=== PATIENT | female | born 1950 | race Caucasian/White ===

== ENCOUNTER 2025-04-28 10:28 | Day surgery (SDC) | payer MEDICARE, OTHER, SELFPAY ==
[2025-04-28] VITALS (8 sets, daily range): BP systolic 115–159; BP diastolic 71–83; BMI 30.8
[2025-04-28 10:59] LABS: Hematocrit 39.4 % (37.0-47.0); Hemoglobin 13.0 g/dL (12.0-16.0); Mean Corp Hgb Conc. 33.0 g/dL (33.0-37.0); Mean Corpuscular Volume 88.7 fL (81.0-99.0); Platelet Count 314 10^3/uL (130-400); Red Cell Dist. Width 12.8 % (11.5-14.5)
[2025-04-28 11:15] LABS: ALT (SGPT) 21 U/L (0-35); AST (SGOT) 23 U/L (14-36); Albumin 4.3 g/dl (3.5-5.0); Alkaline Phosphatase 79 U/L (38-126); Blood Urea Nitrogen 18 mg/dl (7-17); Calcium 9.7 mg/dl (8.4-10.2); Carbon Dioxide 30 mmol/L (22-30); Chloride 107 mmol/L (98-107); Glucose 99 mg/dl (70-99); Potassium 4.9 mmol/L (3.5-5.1); Sodium 139 mmol/L (135-145); Total Protein 6.9 g/dl (6.3-8.2); eGFR > 60.00
[2025-04-28] MEDS: LOW STRENGTH ASPIRIN 324 MG PO (11:55)
--- NOTE | 2025-04-28 14:38 | ITS.CL.CATH ---
Moderate Needs Teacher - Catheterization
Cardiac Catheterization
Procedure Report:
LEFT AND RIGHT HEART CATHETERIZATION
Date of Procedure: April 28, 2025
Referring: Steve Petersen PA-C and Dr. Ted Diallo
PROCEDURES:
1. Left heart catheterization, coronary angiogram.
2. Moderate sedation.
INDICATION: Ongoing dyspnea on exertion
ACCESS: Right radial artery, 6Fr. sheath, under US guidance.
Right brachial vein, 6Fr sheath, under Us guidance
HEMODYNAMICS : (mmHg)
RA (m) : 6
RV (s/d,m) : 30/4, 8
PA (s/d, m) : 24/12, 16
PCWP (m) : 12
PA saturation: 67.5% on room air
AO saturation: 96.3% on room air
RA saturation: 67.4% on room air
Cardiac Output : 4.78 L/min
Cardiac Index : 2.55 L/min/m-2
Systemic vascular resistance: 1909 dsc^(-5)
Pulmonary vascular resistance: 3.13 davalos unit
AO (s/d) : 164/85
LVEDP : 13
No significant gradient across the aortic valve to suggest aortic stenosis.
CORONARY FINDINGS: Tortuous coronary arteries
Dominance: Right
Left Main Trunk (LMT): Large caliber vessel that gives rise to the LAD and LCx branches and is free of angiographic disease.
Left Anterior Descending Artery (LAD): Large caliber vessel that gives off 2 major diagonal branches as it courses along the anterior inter-ventricular groove before wrapping around the cardiac apex. The LAD and its branches are free of
angiographic disease.
Left Circumflex Artery (LCx): Large caliber vessel that gives off 1 major obtuse marginal (OM) branch as it courses along the atrio-ventricular (AV) groove. The LCx and its branches are free of angiographic disease.
Right Coronary Artery (RCA): Large caliber dominant vessel that gives rise to the posterior descending artery (RPDA) and postero-lateral ventricular (RPLV) branches distally. The RCA and its branches are free of angiographic disease.
SEDATION: 37 minutes of procedural sedation was utilized. IV Midazolam and IV Fentanyl were administered. An independent auditor medical claims was present to assist with and help manage the patient's level of consciousness and physiologic status.
Closure Device: There were no immediate intra-procedural complications. The sheath was pulled in the organic lab worker and a vascular-band applied to the right wrist for radial artery hemostasis using the patent hemostasis technique. Manual pressure over
RBV access site.
CONCLUSIONS
1. No obstructive coronary artery disease.
2. Near normal to very mildly elevated right and left sided filling pressures and normal cardiac output. Elevated SVR in setting of systemic hypertension.
RECOMMENDATIONS
1. Wean radial band per protocol. Monitor right hand perfusion and for bleeding from the radial site following removal of the vascular-band following trans-radial access.
2. Continue aggressive medical therapy and risk factor modification for secondary CAD prevention.
3. Hydrate with normal saline to mitigate the risk of contrast-induced acute kidney injury.
4. Follow-up with Dr. Diallo
Abby Dial MD, [facility], [facility]
Copy to: Steve Petersen PA-C and Dr. Ted Diallo
[2025-04-28] MEDS: NSS 1000 IV (15:14)
== END 2025-04-28 17:00 | disposition home or self-care (01) ==
LOC: CATH 10:28
PROVIDERS: ATTENDING PHYSICIAN Internal Medicine Interventional Cardiology; FAMILY PHYSICIAN Nurse Practitioner Family; OTHER PHYSICIAN Internal Medicine Cardiovascular Disease
DX: R06.09 Other forms of dyspnea (principal); I10 Essential (primary) hypertension; Z79.01 Long term (current) use of anticoagulants; Z79.899 Other long term (current) drug therapy; Z79.890 Hormone replacement therapy; I47.29 Other ventricular tachycardia; I45.89 Other specified conduction disorders; I48.92 Unspecified atrial flutter
CPT/HCPCS: 99152; 99153; 80053; 85027; 93460; C1769; C1894; Q9967